=== PATIENT | male | born 1965 | race Caucasian/White ===

== ENCOUNTER 2024-05-05 17:55 | Inpatient (IN) | payer MEDICARE, SELFPAY ==
[2024-05-05] VITALS (12 sets, daily range): BP systolic 115–145; BP diastolic 81–124; BMI 40.3
--- NOTE | 2024-05-05 12:53 | ED.GENMED ---
History of Present Illness
General
Chief Complaint: Heart Rate Problem
Source: patient
Time Seen by Provider: 05/05/24 12:45
History of Present Illness
History of Present Illness:
59-year-old male presents to the emergency room from a urgent care for evaluation of palpitations. Patient states that he awoke from sleep at about 4 AM with a sense his heart was racing and he noted he was clammy. Patient thought the symptoms
might be related to alcohol ingestion. Patient went back to sleep and awoke at about 8 or 9 AM. Symptoms were still present. He decided that he needed to get checked out and went to an urgent care. Patient endorses a history of alcoholism. He
has has been sober on and off for several months at a time. He began drinking again over the past few months with the amount of alcohol consumption up to about 2 bottles of liquor a week. Patient denies any recreational drug use.
Phy Exam
Physical Exam
Physical Exam:
General: Awake, Alert, Oriented X3. No acute distress.
Vitals: Tachycardic
Head: Atraumatic
Eyes: Pupils equal, EOMI
Throat: Airway intact, no exudates
Neck: Trachea midline
Lungs: Clear and equal b/l
Heart: Tachycardic, regular rate, no murmurs
Abd: Soft, Nontender, No pulsatile mass
Neuro: Nonfocal
Skin: Warm, dry, no rash
Extremities: pulses equal b/l, no edema
Scores
[id number] Score for Afib Stroke Risk
Age in Years (65=0, 65-74=1, >/=75=2): <65
Sex (Female=+1): Male
Congestive Heart Failure History (Yes=+1): No
Hypertension History (Yes=+1): Yes
Stroke/TIA/Thromboembolism History (Yes=+2): No
Vascular Disease History (Yes=+1): No
Diabetes Mellitus (Yes=+1): Yes
Score: 2
Anticoagulation Recommendations: Recommend anticoagulation (as validated in nonvalvular fib)
Course
Orders/Labs/Results
Orders:
Orders
05/05/24 12:41
EKG [Electrocardiogram (*1)] Urgent
Reason for Study: Chest Pain
EKG- Treatment ONCE
05/05/24 12:52
Diltiazem 125 mg/125 ml Nss [Cardizem] 125 mg in 125 ml .ROUTE .STK-MED
Diltiazem 125 mg/125 ml Nss [Cardizem] 125 mg in 125 ml IV NOW
Initial dose in mg/hr, then titrate:: 5
Titrate to keep:: Heart rate 80-100 bpm
Titrate by mg/hr:: 5 mg/hr
Frequency of titrations (minutes):: 15
Maximum dose in mg/hr:: 15
Diltiazem HCl [Cardizem] 20 mg IV NOW STA
05/05/24 12:53
Diltiazem HCl [Cardizem] 25 mg .ROUTE .STK-MED ONE
CR Chest - 2 Views Urgent
Comment:
Reason For Exam: sob
05/05/24 12:57
Complete Blood Count/With Diff Urgent
Comprehensive Metabolic Panel Urgent
TSH Reflex To Free T4 Urgent
05/05/24 13:27
Diltiazem HCl [Cardizem] 25 mg IV NOW STA
05/05/24 14:11
Apixaban [Eliquis] 5 mg PO NOW STA
Abnormal Lab Results
05/05/24
12:57
MCV 96.4 H fL
(80.0-94.0)
MCH 33.9 H pg
(27.0-31.0)
Absolute Neuts (auto) 7.3 H 10^3/uL
(1.4-6.5)
Absolute Monos (auto) 1.0 H 10^3/uL
(0.1-0.6)
Lymphocytes % 15.9 L %
(20.5-51.1)
Monocytes % 9.6 H %
(1.7-9.3)
Carbon Dioxide 20 L mmol/L
(22-30)
Glucose 108 H mg/dl
(70-99)
Total Bilirubin 2.1 H mg/dl
(0.2-1.3)
AST 103 H U/L
(17-59)
ALT 59 H U/L
(0-50)
05/05/24 12:57
05/05/24 12:57
Vital Signs
Initial and Last Documented VS:
Initial Vital Signs
Temp Pulse Resp BP Pulse Ox
98.8 F 153 15 143/104 98
05/05/24 12:42 05/05/24 12:42 05/05/24 12:42 05/05/24 12:42 05/05/24 12:42
Last Documented Vital Signs
Temp Pulse Resp BP Pulse Ox
98.8 F 126 15 136/96 97
05/05/24 12:42 05/05/24 15:30 05/05/24 15:30 05/05/24 14:00 05/05/24 15:30
MDM/Problems Addressed
Differential Diagnosis Includes:
A-fib, a flutter, SVT, dehydration, anemia
MDM/Problems Addressed:
Patient presents with rapid heart rate,, sweatiness. Patient found to be in a flutter. Patient required 2 boluses of Cardizem and a Cardizem infusion at 15 mg an hour to provide any heart rate control. I do not believe he is a candidate for ED
cardioversion as he is not anticoagulated. Patient does not believe he was in A-fib recently but he does endorse fairly heavy alcohol use which might make it difficult for him to know if he were actually in A-fib. On the whole I feel it is not
worth the risk and would patient be hospitalized for cardiology evaluation, CRISTINA and likely cardioversion
*Radiology
Radiology exam reviewed: preliminary read by ED provider (No acute findings on my review of the patient's chest x-ray)
*Pulse Oximetry
Patient hypoxic: no
*EKG
Interpreted by ED Provider?: Yes
Interpretation: abnormal
Heart Rate: 167
Rate: tachycardiac
Rhythm: atrial flutter
Interval: normal interval
QRS Pattern: normal QRS
Ischemia: non-specific ST changes
*Graduate Nurse Interpretation
Rate: tachycardiac
Interpretation: abnormal
Rhythm: atrial flutter
*Critical Care Note
Total Time (30-74mins, 75-104mins- exclusive of procedures): 35 min
comment:
Critical care statement: A total of 35 minutes of critical care time was provided for this patient. This includes management of unstable vital signs, evaluation of the patient at bedside, reviewing the patient's pertinent medical records, discussion
with consultants, review of old EKGs and review of pertinent medical records. This time with separate from time utilized to perform the aforementioned documented procedures
ED Attending Note
-
Portions of this chart may have been created with voice recognition software.� Occasional wrong word or��sound alike� substitutions may have occurred due to the inherent limitations of voice recognition software.
Discharge Plan
Departure
Patient Disposition: Admit
Date of Disposition: 05/05/24
Time of Disposition: 14:13
Admit to: Telemetry
Presentation/result/management discussed w/ accepting MD/DO: Hospitalist
Condition: Fair
Discharge Problem:
Atrial flutter with rapid ventricular response
Prescriptions:
No Action
Ag1
1 dose PO DAILY
potassium 99 mg Tablet
99 mg PO DAILY
ascorbic acid (vitamin C) [Vitamin C] 500 mg Tablet
500 mg PO DAILY
cholecalciferol (vitamin D3) [Vitamin D3] 25 mcg (1,000 unit) Tablet
25 mcg PO DAILY
magnesium oxide 400 mg magnesium Tablet
400 mg PO DAILY
Referrals:
NONE,* [Family Provider] -
Interventions
Interventions:
*Risk Screen - Suicide Last Done: 05/05/24 12:50
*General Assessment Last Done: 05/05/24 12:53
*Neglect/Abuse Screening Last Done: 05/05/24 12:50
ED- Fall Risk Assessment Last Done: 05/05/24 13:17
*ED COVID-19 Vaccine History Last Done: 05/05/24 12:50
ED- Cardiac Assessment Last Done: 05/05/24 13:17
ED- Pulmonary Assessment Last Done: 05/05/24 13:17
Discharge Date and Time
Print Language: DIVEHI
[2024-05-05] MEDS: CARDIZEM 20 MG IV (12:59)
[2024-05-05] MEDS: CARDIZEM 125 IV ×2 (13:00→22:02)
[2024-05-05 13:17] LABS: % Basophils 0.5 % (0-2); % Eosinophils 0.1 % (0-6); % Immature Granulocytes 0.4 % (0-0.5); % Lymphocytes 15.9 % (20.5-51.1); % Monocytes 9.6 % (1.7-9.3); % Neutrophils 73.5 % (42.2-75.2); Absolute Basophils 0.1 10^3/uL (0-0.2); Absolute Lymphocytes 1.6 10^3/uL (1.2-3.4); Absolute Neutrophils 7.3 10^3/uL (1.4-6.5); Hematocrit 47.7 % (39.0-52.0); Hemoglobin 16.8 g/dL (13.0-18.0); Mean Corp Hgb Conc. 35.2 g/dL (33.0-37.0); Mean Corpuscular Hgb 33.9 pg (27.0-31.0); Mean Corpuscular Volume 96.4 fL (80.0-94.0); Mean Platelet Volume 10.1 fL (7.4-10.4); Nucleated Red Blood Cells % 0 % (-); Platelet Count 213 10^3/uL (130-400); Red Blood Cell Count 4.95 10^6/uL (4.70-6.10); Red Cell Dist. Width 12.3 % (11.5-14.5); White Blood Cell Count 9.9 10^3/uL (4.8-10.8)
[2024-05-05 13:28] LABS: ALT (SGPT) 59 U/L (0-50); AST (SGOT) 103 U/L (17-59); Albumin 4.6 g/dl (3.5-5.0); Alkaline Phosphatase 90 U/L (38-126); Blood Urea Nitrogen 16 mg/dl (9-20); Calcium 9.7 mg/dl (8.4-10.2); Carbon Dioxide 20 mmol/L (22-30); Chloride 101 mmol/L (98-107); Estimated Creatinine Clearance 81 ml/min; Glucose 108 mg/dl (70-99); Potassium 4.3 mmol/L (3.5-5.1); Sodium 143 mmol/L (135-145); Total Bilirubin 2.1 mg/dl (0.2-1.3); Total Protein 7.4 g/dl (6.3-8.2); eGFR > 60.00
[2024-05-05] MEDS: CARDIZEM 25 MG IV (13:32)
[2024-05-05 14:01] LABS: TSH Reflex To Free T4 2.18 uIU/ml (0.47-4.68)
--- NOTE | 2024-05-05 14:17 | HPS.HSE ---
Family Physician
-
Family Physician: * NONE
Chief Complaint
-
Palpitations
History of Present Illness
59M hx ETOH abuse sober for a few years but recently relapsed. Endorsed binge drinking for the last week, daily alcohol intake with hard liquor. Woken up overnight with feelings of palpitations. Evaluated at urgent care and was referred to ED.
Found to be in aflutter new onset. Denies history. Started on cardizem gtt and Eliquis. Afebrile, bp stable, stable respiratory status on room air. Denies symptoms of alcohol withdrawal at this time including nausea, vomiting, shakes.
Medical History
Past Medical History
Past Medical History: Reports Other (as above)
Past Surgical History: Reports Other (as above)
Social History
Tobacco: Non-smoker
Alcohol: Binge drinker
Drug: None
Family History
Family History: Not pertinent (reviewed)
Allergies / Home Medications
Allergies reflects when Allergies were last updated in [facility].
Home Medications with original date entered in [facility]
Allergy/Medication List:
Allergies
Allergy/AdvReac Type Severity Reaction Status Date / Time
No Known Allergies Allergy Verified 05/05/24 12:42
Home Medications
Ag1 1 dose PO DAILY 05/05/24
ascorbic acid (vitamin C) 500 mg tablet (Vitamin C) 500 mg PO DAILY 05/05/24
cholecalciferol (vitamin D3) 25 mcg (1,000 unit) tablet (Vitamin D3) 25 mcg PO DAILY 05/05/24
magnesium oxide 400 mg PO DAILY 05/05/24
potassium 99 mg tablet 99 mg PO DAILY 05/05/24
Review of Systems
-
A 12 point ROS was completed and negative except as noted: Yes
Constitutional: Reports Sleep Disturbance and Other (as below)
Physical Exam
Vital Signs
Vital Signs
Temp Pulse Resp BP Pulse Ox
98.8 F 157 17 145/119 98
05/05/24 12:42 05/05/24 13:32 05/05/24 12:47 05/05/24 13:32 05/05/24 12:47
Physical Exam
General: Other (as below)
Laboratory Results
-
05/05/24 12:57
05/05/24 12:57
Laboratory Results
Total Bilirubin 2.1 mg/dl (0.2-1.3) H 05/05/24 12:57
AST 103 U/L (17-59) H 05/05/24 12:57
ALT 59 U/L (0-50) H 05/05/24 12:57
Alkaline Phosphatase 90 U/L (38-126) 05/05/24 12:57
Impression/Plan
-
ROS
General: Denies fever chills night sweats unexpected weight loss
Neuro: Denies seizure shaking loss of consciousness dizziness vertigo
Psych: denies depression hallucinations confusion manic episodes
Endocrine: Denies polyuria polydipsia polyphagia heat/cold intolerance
HEENT: Denies blindness visual disturbances epistaxis
Pulmonary: denies coughing hemoptysis sneezing sob dyspnea on exertion
Cardiovascular: reports palpitations
Hematology: denies signs symptoms of anemia easy bruising/bleeding
Gastrointestinal: denies nausea vomiting diarrhea constipation hematemesis hematochezia melena
Genito-Urinary: denies retention incontinence dysuria
Musculoskeletal: denies joint pain weakness
Dermatology: denies rash laceration bruising
Physical Exam
General: No pallor, cyanosis, or jaundice.
HEENT: Throat clear. PERRLA Normocephalic atraumatic
NECK: Supple. No JVD Carotid Bruits
RESPIRATORY: Lungs clear to auscultation. No crackles wheezes stridor
CVS: Tachy. No murmur, rub or gallop.
ABDOMEN: Soft, non-tender. No distension. BS+/normal.
EXTREMITIES: No peripheral cyanosis or edema.
TRANSCRIPTIONIST: AOx3. No focal deficits.
IMPRESSION:
59M hx ETOH abuse sober for a few years but recently relapsed. Endorsed binge drinking for the last week, daily alcohol intake with hard liquor. Woke up overnight with feelings of palpitations found to be in new onset aflutter.
PLAN:
#New onset aflutter
IVU admit
cont cardizem gtt
Eliquis 5 mg BID started, cont
Cardio eval
NPO after midnight for possible CRISTINA Cardioversion if flutter persists
#Hx ETOH abuse
Check ETOH lvl
MSAS protocol for now, will consider phenobarb taper if significant withdrawal develops
Folate Thiamine Supplementation
ETOH cessation counseled
#Hypomagnesemia
monitor and replete as necessary
#Mild Transaminitis Bilirubin elevation likely 2/2 ETOH use
monitor
dvt ppx Eliquis
Full Code
I spent a total of 75 minutes with the patient or on the floor. More than 50% of this time involved counseling and coordination of care.
[2024-05-05] MEDS: ELIQUIS 5 MG PO (15:42)
[2024-05-05 18:13] LABS: Magnesium 1.5 mg/dl (1.6-2.3); Phosphorus 2.8 mg/dl (2.5-4.5)
[2024-05-05] MEDS: PROTONIX 40 MG PO (20:43)
[2024-05-05] MEDS: MAGNESIUM SULFATE 50 IV (20:43)
[2024-05-05] MEDS: THIAMINE INJECTION 200 MG IV (20:43)
[2024-05-05 20:58] LABS: INR 1.14; PT 14.5 Sec (11.4-14.6)
[2024-05-05 20:59] LABS: APTT 32.7 Sec (23.4-35.0); Amphetamines Negative (Negative); Barbiturates Negative (Negative); Benzodiazepines Negative (Negative); Buprenorphine Negative (Negative); Cocaine Negative (Negative); Marijuana Positive (Negative); Methadone Negative (Negative); Methamphetamines Negative (Negative); Opiates Negative (Negative); Phencyclidine Negative (Negative); Tricyclic Antidepressants Negative (Negative)
[2024-05-05] MEDS: ATIVAN 1 MG PO (21:00)
[2024-05-05 21:02] LABS: Alcohol None Detected
--- NOTE | 2024-05-05 22:25 | PTCARENOTE ---
Pt received as admission from ED at change of shift. Tele reading Aflutter with HR maintaining in the 150s. Cardizem gtt currently infusing at 15mg/hr. Pt reports daily alcohol use and MSAS orders in place. MSAS score 5 and PO Ativan
administered per order. HR remains in the 150s, pt asymptomatic. BP 115/92. JEFF Beltran notified of pts HR and also daily Marijuana use per protocol. PO Metoprolol ordered Q6Hr. Pt NPO at midnight for possible cardioversion in AM. Pt
instructed to limit activity due to HR and pt verbalizes understanding. Can make needs known. Call cuellar within reach.
[2024-05-05] MEDS: LOPRESSOR 12.5 MG PO (23:16)
[2024-05-06] VITALS (8 sets, daily range): BP systolic 103–147; BP diastolic 72–125; BMI 39.8
--- NOTE | 2024-05-06 01:28 | W.PN.UPDATE ---
Update Note
Progress Note Update
PT admitted today for new aflutter. Started on cardizem gtt. RN reports pt maxed on cardizem gtt and HR remain in 150s. TT sent to social service worker Dr MINDY sharpe for recommendations. Recommends starting metoprolol tartrate 12.5 mg po q6h.
[2024-05-06] MEDS: CARDIZEM 125 IV (04:41)
[2024-05-06 05:13] LABS: Hematocrit 42.2 % (39.0-52.0); Hemoglobin 14.8 g/dL (13.0-18.0); Mean Corp Hgb Conc. 35.1 g/dL (33.0-37.0); Mean Corpuscular Hgb 32.4 pg (27.0-31.0); Mean Corpuscular Volume 92.3 fL (80.0-94.0); Mean Platelet Volume 10.7 fL (7.4-10.4); Platelet Count 196 10^3/uL (130-400); Red Blood Cell Count 4.57 10^6/uL (4.70-6.10); Red Cell Dist. Width 12.3 % (11.5-14.5); White Blood Cell Count 7.9 10^3/uL (4.8-10.8)
--- NOTE | 2024-05-06 05:29 | PTCARENOTE ---
Pt converted to SR with HR 70s-80s. EKG obtained to confirm. Cardizem currently infusing at 10mg/hr. BP 111/72.
[2024-05-06 05:38] LABS: ALT (SGPT) 45 U/L (0-50); AST (SGOT) 53 U/L (17-59); Albumin 3.9 g/dl (3.5-5.0); Alkaline Phosphatase 71 U/L (38-126); Blood Urea Nitrogen 20 mg/dl (9-20); Carbon Dioxide 25 mmol/L (22-30); Chloride 99 mmol/L (98-107); Estimated Creatinine Clearance 107 ml/min; Glucose 128 mg/dl (70-99); Magnesium 2.1 mg/dl (1.6-2.3); Phosphorus 4.1 mg/dl (2.5-4.5); Potassium 4.1 mmol/L (3.5-5.1); Sodium 136 mmol/L (135-145); Total Protein 6.6 g/dl (6.3-8.2); eGFR > 60.00
[2024-05-06] MEDS: LOPRESSOR 12.5 MG PO (06:25)
--- NOTE | 2024-05-06 07:40 | W.PN.HOSP.TC ---
Today's Communication/Plan
-
discharge
Assessment / Plan
Assessment / Plan
Physical Exam
General: No pallor, cyanosis, or jaundice.
HEENT: Throat clear. PERRLA Normocephalic atraumatic
NECK: Supple. No JVD Carotid Bruits
RESPIRATORY: Lungs clear to auscultation. No crackles wheezes stridor
CVS: NSR. No murmur, rub or gallop.
ABDOMEN: Soft, non-tender. No distension. BS+/normal.
EXTREMITIES: No peripheral cyanosis or edema.
MOLDER APPRENTICE: AOx3. No focal deficits.
IMPRESSION:
59M hx ETOH abuse sober for a few years but recently relapsed. Endorsed binge drinking for the last week, daily alcohol intake with hard liquor. Woke up overnight with feelings of palpitations found to be in new onset aflutter.
PLAN:
#New onset aflutter since resolved spontaneously on cardizem gtt
ECHO appreciated EF 71% stage II diastolic dysfunction no significant valve abn's
Cardio eval appreciated
-Cardizem gtt transitioned to PO
-started on Eliquis 5 mg BID, cont
-Medically stable for discharge home to follow up with his healthcare providers, including Crawler Crane Operator, in his home state [place]
#Hx ETOH abuse
neg ETOH lvl
No significant withdrawal symptoms noted during stay
Folate Thiamine Supplementation
ETOH cessation counseled
#Hypomagnesemia
repleted and resolved
#Mild Transaminitis Bilirubin elevation likely 2/2 ETOH use
since improved, resolving
dvt ppx Eliquis
Full Code
Medically stable for discharge home with outpatient follow up recommendations.
Total Time Preparing Discharge ___40____ minutes including examination of the patient, summary of the hospital stay, instructions for continuing care to all relevant caregivers; and preparation of discharge records, prescriptions, and referral
forms if necessary.
Anticipated Discharge: Today
Subjective/Interval History
-
Date of Service: May 06, 2024
Seen and examined at bedside in no acute distress. Sitting up comfortably in bed. Aflutter spontaneously converted to NSR overnight. Patient since transitioned to oral Cardizem tolerated well. Overall reports feeling well. Denies new acute
issues. No significant withdrawal symptoms noted.
Objective Data
-
Labs:
Laboratory Results
05/05/24 05/06/24
20:37 04:14
WBC 7.9
Hgb 14.8
Hct 42.2
Plt Count 196
PT 14.5
INR 1.14
APTT 32.7
Sodium 136
Potassium 4.1
Chloride 99
Carbon Dioxide 25
BUN 20
Creatinine 0.9
Glucose 128 H
Calcium 9.0
Total Bilirubin 2.0 H
AST 53
ALT 45
Alkaline Phosphatase 71
Vital Signs:
Vital Signs
Temp Pulse Resp BP Pulse Ox
98.0 F 74 18 108/76 96
05/06/24 04:04 05/06/24 06:25 05/06/24 04:04 05/06/24 06:25 05/06/24 04:04
I&O
05/05/24 05/06/24 05/07/24
06:59 06:59 06:59
Output Total 200 / 200
Balance -200 / -200
--- NOTE | 2024-05-06 08:42 | CON.CAR ---
Addendum entered and electronically signed by Alcides Frias MD 05/06/24 12:25:
I saw and examined the patient.
The Vehicle Sales Professional's note was reviewed and I agree with the note.
Comment:
GEN: No distress, awake, Ox3
HEENT: supple, anicteric, mmm
LUNGS: CTA, no wheezes/rales
CV: Reg, S1/S2, 1/6 syst LSB, no gallop
ABD: soft, BS+, NT/ND
EXT: No edema
NEURO: Gross non-focal
SKIN: No rash
PLan:
58-year-old male with past medical history of paroxysmal atrial fibrillation presents with multiple days of alcohol use and recurrent atrial flutter with rapid ventricular rates. He was placed on IV Cardizem and ultimately spontaneously converted
back into sinus rhythm. He admits to drinking heavy amounts of alcohol and using significant bouts of marijuana as well.
Stop IV Cardizem and start oral Cardizem. He is agreeable and states he will be compliant with Eliquis. He denies any falls or bleeding.
Will check echocardiogram.
We discussed the importance of stopping alcohol. We also discussed watching for signs of withdrawal.
Original Note:
Consultation
Consultation Request
Date/Time Consultation Performed: 05/06/24
Requesting Provider: Dr. Chaudhari
Performing Provider: Effie Jackman PA-C for Dr. Frias
Reason for Consultation: afib with RVR
Medical History
-
Chief Complaint: afib
History of Present Illness:
Patient is a 59-year-old male with past medical history of alcoholism, who lives in [place], however is visiting his father who is a resident at [facility]. He says he has undergone treatment through as well as an outpatient center. He states
he had been doing relatively well until about the last 4 months or so. He states since he has been here visiting family and friends that he has been drinking 5-7 beers a day and 6-10 shots a day. He states starting overnight from Sunday to
Sunday he noticed he woke up in the middle of the night diaphoretic. He states since then he has had multiple episodes of intermittent diaphoresis. He attempted to hydrate and was taking potassium and magnesium. Then yesterday while sitting
visiting his father he felt the energy drain out of him. He went to urgent care and was referred to the emergency room and found to be in atrial flutter with rapid ventricular response. He states he did have A-fib before in the setting of
significant alcohol use and is followed by a court bailiff in [place]. He had been on several medications for about 6 months and then did not have recurrence with alcohol cessation and therefore all medications were discontinued. He reports he also
had type 2 diabetes and gout which resolved with alcohol use and lifestyle changes. He reports a history of ankylosing spondylitis and some nerve damage resulting in peripheral neuropathy, for which he had started using medicinal marijuana, however
states at this point it is more 'green party weed' that he is using regularly. Denies symptoms of ETOH withdrawal at present however states he has experienced this before.
PMH:
Alcoholism
Ankylosing spondylitis
Paroxysmal atrial fibrillation
Type 2 diabetes, diet controlled
History of gout
Past Medical History
Past Medical History: Other (in HPI)
Social History
Alcohol: Chronic Alcoholic
Drug: Marijuana
Personal: Single
Employment: Disabled
Family History
Family History: Other (CVAs in father)
Allergies / Home Medications
Allergy/AdvReac Type Severity Reaction Status Date / Time
No Known Allergies Allergy Verified 05/05/24 12:42
�Medication �Instructions �Recorded �Confirmed �Type
Ag1 1 dose PO DAILY 05/05/24 05/05/24 History
ascorbic acid (vitamin C) 500 mg 500 mg PO DAILY 05/05/24 05/05/24 History
tablet (Vitamin C)
cholecalciferol (vitamin D3) 25 25 mcg PO DAILY 05/05/24 05/05/24 History
mcg (1,000 unit) tablet (Vitamin
D3)
magnesium oxide 400 mg PO DAILY 05/05/24 05/05/24 History
potassium 99 mg tablet 99 mg PO DAILY 05/05/24 05/05/24 History
Review of Systems
-
History Source: Patient
All other systems: Negative unless noted
Physical Exam
Vital Signs
Temp Pulse Resp BP Pulse Ox
98.1 F 74 18 108/76 98
05/06/24 07:44 05/06/24 06:25 05/06/24 07:44 05/06/24 06:25 05/06/24 07:44
Lab Results
05/06/24 04:14
05/06/24 04:14
Physical Exam
General: No Apparent Distress and Comfortable
HEENT: Normocephalic, Anicteric and Moist Mucous Membranes
Respiratory: Clear and Non Labored Respirations
Cardiac: S1/S2 and Regular Rhythm
GI: Soft, Non Tender, Non Distended and Normal Bowel Sounds
Musculoskeletal: No Clubbing, No Cyanosis and No Edema
Skin: Warm and Dry
Neuro: AO x 3
Impression / Plan
-
Primary Systems Integration Manager: in [place]
Assessment:
Atrial flutter with RVR s/p spontaneous conversion to SR 05/06/24
Alcoholism
Ankylosing spondylitis
Paroxysmal atrial fibrillation
Type 2 diabetes, diet controlled
History of gout
Daily marijuana use
ECHO 05/06/24: pending
Plan:
-Patient presents with episodes of diaphoresis and is found to be in aflutter with RVR. he has history of afib in setting of significant ETOH use in past.
-CXR without acute abnormality
-was started on IV cardizem gtt and spontaneously converted to SR overnight. remains in SR at present
-stop IV cardizem gtt and transition to cardizem cd 120mg daily
-[id number] score of 1 for DM. would consider for OAC. no recent falls reported. he was on OAC in past short term with prior afib episode
-check echo
-TSH WNL
-discussed importance of ETOH cessation. also discussed marijuana cessation. he appears motivated to quit.
-for possible DC later today with OP follow up with primary court bailiff in [place] - his return flight is scheduled for Wednesday 05/09
-could consider eval for ablation as OP
Data Reviewed
-
EKG: Tracing Personally Visualized and interpreted
Radiology: Report Reviewed by me
Labs: Labs Reviewed by me
Old Records: Reviewed
[2024-05-06] MEDS: THIAMINE INJECTION 200 MG IV (08:52)
[2024-05-06] MEDS: PROTONIX 40 MG PO (08:53)
[2024-05-06] MEDS: ELIQUIS 5 MG PO (08:54)
[2024-05-06] MEDS: FOLVITE 1 MG PO (10:19)
[2024-05-06] MEDS: CARDIZEM CD 120 MG PO (10:20)
--- NOTE | 2024-05-06 12:06 | CARDSERVLU ---
Echocardiogram with [facility] completed after protocol screening completed. Allergies verified.
Patent IV site: __left FA___
IV site flushed with 0.9% NaCl pre and post administration.
Diluted bolus method utilized to enhance visualization of ventricular sinah.
Total volume given: ___3.0_ mL
Patient tolerated all procedures well without complications.
--- NOTE | 2024-05-06 16:02 | CM ---
spoke to pt in room, he is prev indep, he lives in an apt (in [place]) with 12 steps to enter. his father lives in [facility] and he was visiting him. plan is for pt to fly home this weekend. spoke to pt about subt abuse/etoh , he told me he did
not want resources locally and is already connected to AA in [place] and said he is going back. plan is for dc to home when medically stable.
--- NOTE | 2024-05-06 16:46 | W.DCSUMMARY ---
Discharge Summary
Discharge Data
Date of Admission: 05/05/24
Date of Discharge: 05/06/24
-
Pending Results: No
Discharge Plan
-
Patient Disposition: Home (Routine Discharge)
Discharge Diagnosis/Procedures: Alcohol Abuse/Binge Drinking
Atrial Flutter since spontaneously converted back to normal sinus rhythm
Condition: Fair
Diet: Regular
Activity: As tolerated
Driving Restrictions: As prior to admission
Bathing Restrictions: None
Activity Restrictions/Additional Instructions:
Please follow up with your primary care provider and Acquisitions Editor within 1 week of discharge.
Cardizem has been prescribed for heart rate control paroxysmal atrial flutter.
Eliquis has been prescribed for reduction of stroke risk associated with paroxysmal atrial flutter.
Please take medications as prescribed/recommended and follow up with primary care provider and/or other healthcare provider involved in your care for refills and/or further adjustment to your medication regimen as necessary.
Abstinence from further alcohol use is strongly advised. Continued use is likely to lead to return of symptoms, overall worsening of your condition, and potential increase in your risk of morbidity/mortality.
Instructions: Atrial Flutter (DC)
Referrals:
NONE,* [Family Provider] -
Prescriptions:
New
diltiazem HCl 120 mg Capsule,Extended Release 24hr
120 mg PO DAILY 30 Days Qty: 30 0RF
Eliquis 5 mg Tablet
5 mg PO BID 30 Days Qty: 60 0RF
Continued
Ag1
1 dose PO DAILY
ascorbic acid (vitamin C) [Vitamin C] 500 mg Tablet
500 mg PO DAILY
cholecalciferol (vitamin D3) [Vitamin D3] 25 mcg (1,000 unit) Tablet
25 mcg PO DAILY
magnesium oxide 400 mg magnesium Tablet
400 mg PO DAILY
Discontinued
potassium 99 mg Tablet
99 mg PO DAILY
Discharge Orders:
Discharge Patient (As Directed); Ordered 05/06/24
Ordered By: Vu Chaudhari
Care Plan Goals
Care Plan Goals:
Problem: Readiness for enhanced knowledge related to diagnosis and treatment plan
Goal: Understand your diagnosis and treatment plan needs, including medications if applicable.
Instructions: Know your diagnosis, underlying causes and treatment plan options, including medications if applicable. Consult with your health care team to learn about your diagnosis and treatment plan, including medications if applicable.
Discharge Date and Time
Print Language: UKRAINIAN
== END 2024-05-06 18:24 | disposition home or self-care (01) | DRG 310 ==
LOC: IVU 17:55
PROVIDERS: ADMITTING PHYSICIAN Internal Medicine; CONSULT PHYSICIAN Internal Medicine Cardiovascular Disease; EMERGENCY PHYSICIAN Emergency Medicine
DX: I48.92 Unspecified atrial flutter (principal); F10.20 Alcohol dependence, uncomplicated; Z79.01 Long term (current) use of anticoagulants; E83.42 Hypomagnesemia; I48.0 Paroxysmal atrial fibrillation; M45.9 Ankylosing spondylitis of unspecified sites in spine; E11.9 Type 2 diabetes mellitus without complications
CPT/HCPCS: 71046; 80053; 80306; 82077; 83735; 84100; 84443; 85025; 85027; 85610; 85730; 93005; 93306; 96374; 96376; 99291; Q9950